=== PATIENT | female | born 1985 | race Caucasian/White ===

== ENCOUNTER 2017-02-13 18:29 | Emergency (ER) | payer OTHER | END 2017-02-13 19:35 | disposition home or self-care (01) | LOC: ER1 18:29 | DX: K04.7 Periapical abscess without sinus (principal); K02.9 Dental caries, unspecified; I10 Essential (primary) hypertension; F17.210 Nicotine dependence, cigarettes, uncomplicated; Z79.899 Other long term (current) drug therapy | CPT/HCPCS: 99282 ==

== ENCOUNTER 2017-02-14 21:37 | Emergency (ER) | payer OTHER | END 2017-02-15 03:19 | disposition left against medical advice (07) | LOC: ER1 21:37 | DX: Z53.21 Procedure and treatment not carried out due to patient leaving prior to being seen by health care provider (principal) ==

== ENCOUNTER 2017-03-08 22:55 | Emergency (ER) | payer OTHER | END 2017-03-09 05:56 | disposition home or self-care (01) | LOC: ER1 22:55 | DX: S16.1XXA Strain of muscle, fascia and tendon at neck level, initial encounter (principal); S39.012A Strain of muscle, fascia and tendon of lower back, initial encounter; S70.01XA Contusion of right hip, initial encounter; W01.0XXA Fall on same level from slipping, tripping and stumbling without subsequent striking against object, initial encounter; F17.210 Nicotine dependence, cigarettes, uncomplicated; Y92.512 Supermarket, store or market as the place of occurrence of the external cause | CPT/HCPCS: 72040; 72100; 73502; 84703; 99283 ==

== ENCOUNTER 2017-04-05 21:54 | Emergency (ER) | payer OTHER | END 2017-04-05 22:40 | disposition left against medical advice (07) | LOC: ER1 21:54 | DX: Z53.21 Procedure and treatment not carried out due to patient leaving prior to being seen by health care provider (principal) ==

== ENCOUNTER 2020-11-24 23:44 | Emergency (ER) | payer OTHER ==
[~2020-11-24 23:44] MED LIST: ALBUTEROL2.5 MG/3 M NEB; BREO ELLIPTA INH 200; BUPRENORPHIN-N1 EACH SL; COLACE 100MG C100 MG PO; IBUPROFEN600 MG PO; INDERAL TAB 1010 MG PO; PHENERGAN 25 MG25 M1 PO; PRENATAL 19 TA1 EAC1 PO; SUBOXONE 12 MG1 EACH SL; SUBUTEX 8 MG TAB8 MG PO; TAPAZOLE5 MG PO; TYLENOL 325MG325 MG PO; ZOFRAN ODT 4 MG4 MG SL
== END 2020-11-25 03:30 | disposition left against medical advice (07) ==
LOC: ER1 23:44
DX: Z53.21 Procedure and treatment not carried out due to patient leaving prior to being seen by health care provider (principal)
CPT/HCPCS: 93005

== ENCOUNTER 2021-06-11 19:24 | Emergency (ER) | payer OTHER ==
[2021-06-11] MEDS ORDERED: NAPROXEN500 MG PO (20:41)
[2021-06-11] MEDS ORDERED: Viscous Lidocaine2% TOP (20:41)
[2021-06-11] MEDS ORDERED: CLEOCIN HCL300 MG PO (20:41)
== END 2021-06-11 21:05 | disposition home or self-care (01) ==
LOC: ER1 19:24
DX: K04.7 Periapical abscess without sinus (principal); F17.210 Nicotine dependence, cigarettes, uncomplicated
CPT/HCPCS: 96372; 96374; 99282; J1885

== ENCOUNTER 2021-06-29 02:15 | Emergency (ER) | payer OTHER ==
[~2021-06-29 02:15] MED LIST changes: +CLEOCIN HCL300 MG PO; +NAPROXEN500 MG PO; +Viscous Lidocaine2% TOP
[2021-06-29 03:30] LABS: HEMOGLOBIN 12.9 gm/dl (12.3-15.3); RED BLOOD COUNT 4.19 M/UL (4.00-5.10)
[2021-06-29 03:51] LABS: BUN/CREATININE RATIO 17 (0-10)
[2021-06-29] MEDS ORDERED: ZOFRAN4 MG PO (04:27)
[2021-06-29] MEDS ORDERED: OMNICEF 300 MG300 MG PO (04:27)
[2021-07-01 21:11] LABS: CHLAMYDIA TRACHOMATIS, NAA Negative (Negative); NEISSERIA GONORRHOEAE, NAA Negative (Negative)
== END 2021-06-29 05:00 | disposition home or self-care (01) ==
LOC: ER1 02:15
PROVIDERS: Physician Assistant Medical
DX: R07.89 Other chest pain (principal); R60.0 Localized edema; N39.0 Urinary tract infection, site not specified; J45.909 Unspecified asthma, uncomplicated; F17.210 Nicotine dependence, cigarettes, uncomplicated
CPT/HCPCS: 71045; 80053; 81001; 82550; 82553; 83874; 84484; 84703; 85025; 85379; 85610; 93005; 99285

== ENCOUNTER 2021-10-01 23:59 | Emergency (ER) | payer OTHER ==
[~2021-10-01 23:59] MED LIST changes: +OMNICEF 300 MG300 MG PO; +ZOFRAN4 MG PO
== END 2021-10-02 02:36 | disposition left against medical advice (07) ==
LOC: ER1 23:59
DX: R07.9 Chest pain, unspecified (principal); R06.02 Shortness of breath; R05.9 Cough, unspecified; F17.210 Nicotine dependence, cigarettes, uncomplicated; Z86.19 Personal history of other infectious and parasitic diseases; Z85.41 Personal history of malignant neoplasm of cervix uteri
CPT/HCPCS: 99282

== ENCOUNTER 2021-10-02 03:04 | Emergency (ER) | payer OTHER ==
[2021-10-02 05:11] LABS: HEMOGLOBIN 11.2 gm/dl (12.3-15.3); RED BLOOD COUNT 3.75 M/UL (4.00-5.10); WHITE BLOOD COUNT 8.1 K/UL (4.5-11.0)
[2021-10-02 05:48] LABS: BUN/CREATININE RATIO 22 (0-10)
== END 2021-10-02 06:45 | disposition home or self-care (01) ==
LOC: ER1 03:04
PROVIDERS: Student in an Organized Health Care Education/Training Program
DX: M79.89 Other specified soft tissue disorders (principal); D64.9 Anemia, unspecified; F17.200 Nicotine dependence, unspecified, uncomplicated; Z85.41 Personal history of malignant neoplasm of cervix uteri; Z88.0 Allergy status to penicillin
CPT/HCPCS: 71045; 80053; 82550; 82553; 83874; 84484; 85025; 85379; 99285

== ENCOUNTER 2022-04-02 18:00 | Emergency (ER) | payer OTHER ==
[~2022-04-02 18:00] MED LIST changes: +NAPROXEN375 MG PO
[2022-04-02] MEDS ORDERED: PERCOCET 5-3251 EACH PO (23:57)
[2022-04-02] MEDS ORDERED: DOXYCYCLINE HY100 MG PO (23:57)
== END 2022-04-03 00:03 | disposition home or self-care (01) ==
LOC: ER1 18:00
DX: R07.81 Pleurodynia (principal); F17.210 Nicotine dependence, cigarettes, uncomplicated; Z85.41 Personal history of malignant neoplasm of cervix uteri
CPT/HCPCS: 71046; 93005; 99284; Q9967

== ENCOUNTER → 2022-04-07 | Outpatient (CLI) | payer OTHER ==
[~2022-04-07] MED LIST changes: +DOXYCYCLINE HY100 MG PO; +PERCOCET 5-3251 EACH PO
[2022-04-07 17:40] LABS: HEMOGLOBIN 10.7 gm/dl (12.3-15.3); RED BLOOD COUNT 3.52 M/UL (4.00-5.10); WHITE BLOOD COUNT 6.5 K/UL (4.5-11.0)
[2022-04-07 18:04] LABS: BUN/CREATININE RATIO 20 (0-10)
== END ==
LOC: LAB 17:01
PROVIDERS: Family Medicine
DX: Z13.0 Encounter for screening for diseases of the blood and blood-forming organs and certain disorders involving the immune mechanism (principal); Z13.21 Encounter for screening for nutritional disorder; Z13.220 Encounter for screening for lipoid disorders; Z13.228 Encounter for screening for other metabolic disorders; R07.1 Chest pain on breathing; J44.0 Chronic obstructive pulmonary disease with (acute) lower respiratory infection; E03.9 Hypothyroidism, unspecified
CPT/HCPCS: 36415; 80053; 80061; 82607; 84439; 84443; 85025

== ENCOUNTER 2022-06-09 15:37 | Emergency (ER) | payer OTHER ==
[2022-06-09 17:09] LABS: HEMOGLOBIN 12.2 gm/dl (12.3-15.3); RED BLOOD COUNT 3.96 M/UL (4.00-5.10); WHITE BLOOD COUNT 3.5 K/UL (4.5-11.0)
[2022-06-09 17:32] LABS: BUN/CREATININE RATIO 19 (0-10)
[2022-06-09] MEDS ORDERED: OMNICEF 300 MG300 MG PO (18:56)
== END 2022-06-09 19:58 | disposition home or self-care (01) ==
LOC: ER1 15:37
PROVIDERS: Physician Assistant
DX: N30.90 Cystitis, unspecified without hematuria (principal); F17.210 Nicotine dependence, cigarettes, uncomplicated; Z85.41 Personal history of malignant neoplasm of cervix uteri
CPT/HCPCS: 71045; 80053; 81001; 82550; 82553; 83605; 84484; 85025; 87086; 93005; 99284

== ENCOUNTER 2022-06-27 16:04 | Emergency (ER) | payer OTHER ==
[2022-06-27 17:07] LABS: HEMOGLOBIN 10.6 gm/dl (12.3-15.3); RED BLOOD COUNT 3.5 M/UL (4.00-5.10); WHITE BLOOD COUNT 7.8 K/UL (4.5-11.0)
[2022-06-27 17:38] LABS: BUN/CREATININE RATIO 13 (0-10)
[2022-06-27] MEDS ORDERED: ASPIRIN CHEWABL81 MG PO (21:39)
== END 2022-06-27 22:21 | disposition home or self-care (01) ==
LOC: ER1 16:04
PROVIDERS: Physician Assistant Medical
DX: R07.9 Chest pain, unspecified (principal); R00.2 Palpitations; R51.9 Headache, unspecified; N39.0 Urinary tract infection, site not specified; F17.200 Nicotine dependence, unspecified, uncomplicated; Z86.16 Personal history of COVID-19
CPT/HCPCS: 70450; 71045; 80053; 81001; 82550; 82553; 84439; 84443; 84484; 84703; 85025; 85379; 87040; 93005; 96374; 96375; 99285; J2270; J2405; Q9967